=== PATIENT | female | born 1955 | race Caucasian/White ===

== ENCOUNTER → 2017-08-19 18:11 | Outpatient (CLI) | payer MEDICARE | END | disposition home or self-care (01) | LOC: D.MAMMO 09:00 | DX: Z85.3 Personal history of malignant neoplasm of breast (principal); Z12.31 Encounter for screening mammogram for malignant neoplasm of breast ==

== ENCOUNTER → 2018-09-23 08:09 | Outpatient (CLI) | payer MEDICARE | END | disposition home or self-care (01) | LOC: D.CT 08:00 | DX: R05 Cough (principal) ==

== ENCOUNTER 2019-01-17 19:00 | Outpatient (CLI) | payer OTHER | END 2019-01-17 23:59 | disposition home or self-care (01) | LOC: D.MAMMO 19:00 | PROVIDERS: ATTEND Emergency Medicine | DX: Z85.3 Personal history of malignant neoplasm of breast (principal) ==

== ENCOUNTER → 2019-03-30 08:38 | Outpatient (CLI) | payer OTHER | END | disposition home or self-care (01) | LOC: D.CT 08:38 | PROVIDERS: ATTEND Internal Medicine Pulmonary Disease | DX: R93.89 Abnormal findings on diagnostic imaging of other specified body structures (principal) ==

== ENCOUNTER → 2019-04-15 08:22 | Outpatient (CLI) | payer OTHER ==
[2019-04-18 13:11] LABS: ANGIOTENSIN CONVERTING ENZYME 37 U/L (14-82)
[2019-04-18 16:09] LABS: ANCA - ANTIMYELOPEROXIDASE <9.0 U/mL (0.0-9.0); ANCA - ANTIPROTEINASE 3 <3.5 U/mL (0.0-3.5); ANCA - ATYPICAL <1:20 titer (Neg:<1:20); ANCA - CYTOPLASMIC <1:20 titer (Neg:<1:20); ANCA - PERINUCLEAR <1:20 titer (Neg:<1:20)
[2019-04-19 03:08] LABS: ANA REFLEX - DIRECT Negative (Negative)
== END | disposition home or self-care (01) ==
LOC: D.LAB 08:22
PROVIDERS: ATTEND Internal Medicine Pulmonary Disease
DX: R93.89 Abnormal findings on diagnostic imaging of other specified body structures (principal)

== ENCOUNTER → 2019-07-05 08:13 | Outpatient (CLI) | payer OTHER ==
[2019-07-05 09:21] LABS: BASOPHILS 0.5 % (0-2); EOSINOPHILS 2.8 % (0-7); HEMATOCRIT 39.3 % (36.0-48.0); HEMOGLOBIN 13.1 g/dL (12-16); LYMPHOCYTES 27.6 % (15-50); MCH 31.2 pg (26.0-34.0); MCHC 33.3 g/dL (31.0-37.0); MCV 93.6 fL (80.0-100.0); MONOCYTES 13.7 % (2-11); NEUTROPHILS 55.4 % (40-80); PLATELET COUNT 163 10x3/uL (130-400); RDW 12.6 % (11.5-14.5); WBC 4.3 10x3/uL (4.8-10.8)
[2019-07-06 16:08] LABS: ANA REFLEX - DIRECT Negative (Negative)
[2019-07-07 12:10] LABS: ANGIOTENSIN CONVERTING ENZYME 40 U/L (14-82)
[2019-07-07 17:08] LABS: ANCA - ANTIMYELOPEROXIDASE <9.0 U/mL (0.0-9.0); ANCA - ANTIPROTEINASE 3 <3.5 U/mL (0.0-3.5); ANCA - ATYPICAL <1:20 titer (Neg:<1:20); ANCA - CYTOPLASMIC <1:20 titer (Neg:<1:20); ANCA - PERINUCLEAR <1:20 titer (Neg:<1:20)
== END | disposition home or self-care (01) ==
LOC: D.CT 08:13
PROVIDERS: ATTEND Internal Medicine Pulmonary Disease
DX: R91.1 Solitary pulmonary nodule (principal)

== ENCOUNTER → 2019-08-19 10:19 | Outpatient (CLI) | payer OTHER ==
[~2019-08-19 10:19] MED LIST: ASPIRIN325 MG PO; BAYER ASPIRIN325 MG PO; BENICAR40 MG PO; HYDROCODON-ACE1 EAC7 PO; KEFLEX500 MG PO; METOPROLOL TART50 MG PO; MOBIC7.5 MG PO; OMEPRAZOLE20 M1 PO; OXYCODONE HCL5 M1 PO; PREDNISONE20 MG PO; VISTARIL50 MG PO
[2019-10-08 12:28] VITALS: BMI 36.1
== END | disposition home or self-care (01) ==
LOC: D.RT 07-05 08:00
PROVIDERS: ATTEND Internal Medicine Pulmonary Disease
DX: R05 Cough (principal); R93.89 Abnormal findings on diagnostic imaging of other specified body structures

== ENCOUNTER → 2019-08-24 09:56 | Outpatient (CLI) | payer OTHER ==
[2019-10-08 12:28] VITALS: BMI 36.1
== END | disposition home or self-care (01) ==
LOC: D.HCCECHO 09:56 → D.HCCARDIO 10:30 → D.HCCECHO 10:30
PROVIDERS: ATTEND Internal Medicine Cardiovascular Disease
DX: I34.0 Nonrheumatic mitral (valve) insufficiency (principal)

== ENCOUNTER 2019-10-08 09:42 | Inpatient (IN) | payer OTHER ==
[~2019-10-08] VITALS: Ht 162.6 cm; Wt 95.5 kg
[2019-10-08] MEDS ORDERED: BENICAR40 MG PO (09:45)
[2019-10-08] MEDS ORDERED: METOPROLOL TART50 MG PO (09:45)
[2019-10-08] MEDS ORDERED: MOBIC7.5 MG PO (09:46)
[2019-10-08] MEDS ORDERED: OMEPRAZOLE20 M1 PO (09:46)
[2019-10-08] MEDS ORDERED: HYDROCODON-ACE1 EAC7 PO (09:47)
[2019-10-08] MEDS ORDERED: PREDNISONE20 MG PO (09:48)
[2019-10-08 10:39] LABS: BASOPHILS 0.1 % (0-2); EOSINOPHILS 0.1 % (0-7); HEMATOCRIT 41.7 % (36.0-48.0); HEMOGLOBIN 13.4 g/dL (12-16); IMMATURE GRANULOCYTES 0.2 % (0-5); LYMPHOCYTES 5.4 % (15-50); MCH 31.3 pg (26.0-34.0); MCHC 32.1 g/dL (31.0-37.0); MCV 97.4 fL (80.0-100.0); MEAN PLATELET VOLUME 11.3 fL (7.4-10.4); MONOCYTES 6.8 % (2-11); NEUTROPHILS 87.4 % (40-80); PLATELET COUNT 158 10x3/uL (130-400); RBC 4.28 10x6/uL (4.00-5.40); WBC 11.6 10x3/uL (4.8-10.8)
[2019-10-08 10:44] LABS: ANION GAP 12.7 mmol/L (8-16); APTT 26.2 SECONDS (22.8-39.4); CALCIUM 9.5 mg/dL (8.5-10.1); CARBON DIOXIDE 27.8 mmol/L (21.0-32.0); CREATININE - SERUM 1.1 mg/dL (0.6-1.3); INR 1.06 (0.85-1.17); POTASSIUM - SERUM 4.5 mmol/L (3.5-5.1); PROTIME 13.3 SECONDS (11.6-15.0)
[2019-10-08 10:50] LABS: ALBUMIN 3.6 g/dL (3.4-5.0); BILIRUBIN - TOTAL 0.48 mg/dL (0.2-1.3); PROTEIN - SERUM 7.9 g/dL (6.4-8.2)
[2019-10-08 11:12] VITALS: BP 144/70
--- NOTE | 2019-10-08 11:23 | MORECARE ---
CASE MANAGEMENT DISCHARGE SUMMARY PATIENT: EMMANUEL LI EARLENE UNIT: [id number] ADM DATE: 10/08/19 AGE: 64 : 53 SEX: F ROOM/BED: D.2208 AUTHOR: RENALDO BARRAGAN PHYSICIAN: REFERRING PHYSICIAN: ANEUDY HAWTHORNE MD DATE OF SERVICE: 10/08/19 Discharge Plan Patient Name: EMMANUEL LI [facility] [facility] 1955 Planned Disposition: Home Anticipated Discharge Date: 10/10/19 Discharge Date: Expected LOS: 2 Initial Reviewer: [email or web address] Initial Review Date: 10/08/2019 Generated: 10/08/19 12:22 pm DCPIA - Discharge Planning Initial Assessment Updated by [id number]: Gayle Hanna on 10/08/19 11:20 am * Is the patient Alert and Oriented? Yes * How many steps to enter\exit or inside your home? One * PCP Dr. Hamilton * [facility] * Preadmission Environment Home with Family * ADLs Independent * Equipment CPAP * List name and contact numbers for known caregivers / representatives who currently or will assist patient after discharge: Alexander Li - spouse - [phone] * Verbal permission to speak to the caregivers and representatives has been obtained from the patient. Yes * Community resources currently utilized None * Additional services required to return to the preadmission environment? No * Can the patient safely return to the preadmission environment? Yes * Has this patient been hospitalized within the prior 30 days at any hospital? No Patient Name: EMMANUEL LI Page [id number] at 1123 All edits/amendments must be made on the electronic document DICTATION DATE: 10/08/19 112 AUTO DAMAGE ESTIMATOR: EVELIA 10/08/191121 RPT#: [id number] DC DATE: STATUS: ADM IN [facility] [address] [place] [address] END OF REPORT
--- NOTE | 2019-10-08 11:35 | MORECARE ---
CASE MANAGEMENT DISCHARGE SUMMARY PATIENT: EMMANUEL LI EARLENE UNIT: [id number] ADM DATE: 10/08/19 AGE: 64 : 53 SEX: F ROOM/BED: D.2205 AUTHOR: YUNG,DOC PHYSICIAN: REFERRING PHYSICIAN: ANEUDY HAWTHORNE MD DATE OF SERVICE: 10/08/19 Discharge Plan Patient Name: EMMANUEL LI Facility[facility]:[place] : 1955 Planned Disposition: Home Anticipated Discharge Date: 10/10/19 Discharge Date: Expected LOS: 2 Initial Reviewer: [email or web address] Initial Review Date: 10/08/2019 Generated: 10/08/19 12:35 pm DCP- Discharge Planning Updated by [id number]: Gayle Hanna on 10/08/19 10:[address] DC PLAN: Return home with if able post op. ANTICIPATED DC NEEDS: May need therapy at dc. CM met with patient to complete initial dc planning assessment. CM educated patient on the CM role and verbal consent given by patient to complete assessment. CM verified patient's address, phone number, and emergency contact phone numbers. Patient lives at home with her . She is independent in her care at home. She reports she was hold a gate to keep a cow in a contained area when the cow ran through the gate and she fell on her right hip. At discharge patient plans to return home with her and feels this is a safe discharge. CM discussed availability of home health, rehab services, and medical equipment. Patient denied known discharge needs at this time. She is hopeful to not need therapy at time of discharge but is aware she may need OP or HH if she does not do well post op. Transportation provider at discharge will be her . CM will continue to follow and will assist as needed with dc plans/needs. Gayle Hanna RN, CCM DCPIA - Discharge Planning Initial Assessment Updated by [id number]: Gayle Hanna on 10/08/19 11:20 am * Is the patient Alert and Oriented? Yes * How many steps to enter\exit or inside your home? One * PCP Dr. Hamilton * [facility] * Preadmission Environment Home with Family * ADLs Independent * Equipment CPAP * List name and contact numbers for known caregivers / representatives who currently or will assist patient after discharge: Alexander Li - spouse - [phone] * Verbal permission to speak to the caregivers and representatives has been obtained from the patient. Yes * Community resources currently utilized None * Additional services required to return to the preadmission environment? No * Can the patient safely return to the preadmission environment? Yes * Has this patient been hospitalized within the prior 30 days at any hospital? No Last DP export: 10/08/19 10:23 Patient Name: EMMANUEL LI Page [id number] at 1135 All edits/amendments must be made on the electronic document DICTATION DATE: 10/08/19 113 CAMPUS RECRUITING INTERNSHIP: EVELIA 10/08/19 113 RPT#: [id number] DC DATE: STATUS: ADM IN [facility] [address] [place] [address] END OF REPORT
--- NOTE | 2019-10-08 11:46 | NUR ---
PT ARRIVED VIA STRECHER ANS WAS TRANSFERRED ON SLIDING BOARD. PT WAS IN PAIN DURING TRANSFER BUT DENIES PAIN AT THIS TIME. 20G NOTED TO LEFT AC SL. RR EVEN AND UNLABORED. PT POSITIONED TO COMFORT. DENIES NEEDS AT THIS TIME. FAMILY AT BEDSIDE. BED IN LOWEST POSITION. PT ORIENTED TO ROOM. CALL LIGHT WITHIN REACH. WILL CONTINUE TO MONITOR.
[2019-10-08] MEDS ORDERED: BAYER ASPIRIN325 MG PO (11:54)
--- NOTE | 2019-10-08 12:08 | NUR ---
I have reviewed this patient and I concur with the Shift Assessment completed by the Licensed Practical Nurse today this shift.
[2019-10-08 12:28] VITALS: BP 123/51; Ht 162.6 cm; Wt 95.5 kg
[2019-10-08 14:36] VITALS: BP 123/51
[2019-10-08 16:26] VITALS: BP 148/70
--- NOTE | 2019-10-08 18:15 | NUR ---
PRIOR TO CHLORAPREP PATIENT WAS SCRUBBED WITH HIBICLENS/ALCOHOL FOR 5 MINUTES FROM HIP TO CALF CIRCUMFERENTIALLY. RN PREPPED FROM HIP TO CALF CIRCUMFERENTIALLY WITH CHLORAPREP X3 IN STERILE GOWN AND GLOVES. TRAFFIC IN AND OUT OF ROOM KEPT TO MINIMUM. LAMINER NEHEMIAS NOT IN USE. PLASMA BLADE SET TO 6/8. REM PAD LOT #[id number] EXP. 04-21-2021 WOUND BED PACKED WITH TOBRAMYCIN AND VANCOMYCIN POWDER.
[2019-10-08 20:09] VITALS: BP 107/60
--- NOTE | 2019-10-08 20:23 | NUR ---
RECEIVED FROM RR AWAKE,ALERT.NO DISTRESS NOTED. O2 @ 2L PER NC ON. RESP UNLABORED. NO COMPLAITNS OF PAIN AT PRESENT. IV TO LAC INTACT WITHOUT REDNESS OR EDEMA NOTED. PROVENA INTACT TO RIGHT HIP INCISION.CL IN REACH. FAMILY AT BEDSIDE.
[2019-10-09] VITALS: BP 145/63
--- NOTE | 2019-10-09 03:00 | NUR ---
I have reviewed this patient and I concur with the Shift Assessment completed by the Licensed Practical Nurse today this shift.
[2019-10-09 03:06] LABS: APPEARANCE CLEAR (CLEAR); BILIRUBIN NEGATIVE (NEGATIVE); COLOR YELLOW (YELLOW); GLUCOSE NEGATIVE (NEGATIVE); KETONE NEGATIVE (NEGATIVE); NITRITE NEGATIVE (NEGATIVE); PROTEIN NEGATIVE (NEGATIVE); SPECIFIC GRAVITY 1.015 (1.005-1.020); UROBILINOGEN NORMAL (NORMAL)
[2019-10-09 04:00] VITALS: BP 90/48
[2019-10-09 07:07] LABS: BASOPHILS 0 % (0-2); EOSINOPHILS 0 % (0-7); HEMATOCRIT 34.5 % (36.0-48.0); IMMATURE GRANULOCYTES 0.3 % (0-5); LYMPHOCYTES 10.1 % (15-50); MCH 31.4 pg (26.0-34.0); MCHC 31.9 g/dL (31.0-37.0); MCV 98.6 fL (80.0-100.0); MONOCYTES 12.9 % (2-11); NEUTROPHILS 76.7 % (40-80); PLATELET COUNT 155 10x3/uL (130-400); RDW 13.2 % (11.5-14.5); WBC 11.7 10x3/uL (4.8-10.8)
[2019-10-09 07:39] LABS: ANION GAP 14.5 mmol/L (8-16); CALCIUM 8.8 mg/dL (8.5-10.1); CREATININE - SERUM 1.1 mg/dL (0.6-1.3); POTASSIUM - SERUM 4.5 mmol/L (3.5-5.1)
[2019-10-09 08:45] VITALS: BP 109/66
--- NOTE | 2019-10-09 08:49 | NUR ---
PATIENT RECIEVED FROM PREVIOUS NURSE RESTING WITH HOB ELEVATED. RESPIRTATIONS REGULAR AND NON-LABORED. PREVENA VAC INTACT TO RIGHT HIP. OXYCODONE 5MG AND VISTERIL GIVEN FOR PAIN. EDUCATED ON USE OF IS WITH PATIENT VOICING UNDERSTANDING. CL IN REACH
[2019-10-09 12:00] VITALS: BP 109/40
--- NOTE | 2019-10-09 13:50 | MORECARE ---
CASE MANAGEMENT DISCHARGE SUMMARY PATIENT: EMMANUEL LI EARLENE UNIT: [id number] ADM DATE: 10/08/19 AGE: 64 : 53 SEX: F ROOM/BED: D.9936 AUTHOR: YUNG,DOC PHYSICIAN: REFERRING PHYSICIAN: ANEUDY HAWTHORNE MD DATE OF SERVICE: 10/09/19 Discharge Plan Patient Name: EMMANUEL LI Facility: [facility]:[place] : 1955 Planned Disposition: Home Anticipated Discharge Date: 10/10/19 Discharge Date: Expected LOS: 2 Initial Reviewer: [email or web address] Initial Review Date: 10/08/2019 Generated: 10/09/19 2:50 pm DCP- Discharge Planning Updated by [email or web address]: Gayle Hanna on 10/08/19 10:[address] DC PLAN: Return home with if able post op. ANTICIPATED DC NEEDS: May need therapy at dc. CM met with patient to complete initial dc planning assessment. CM educated patient on the CM role and verbal consent given by patient to complete assessment. CM verified patient's address, phone number, and emergency contact phone numbers. Patient lives at home with her . She is independent in her care at home. She reports she was hold a gate to keep a cow in a contained area when the cow ran through the gate and she fell on her right hip. At discharge patient plans to return home with her and feels this is a safe discharge. CM discussed availability of home health, rehab services, and medical equipment. Patient denied known discharge needs at this time. She is hopeful to not need therapy at time of discharge but is aware she may need OP or HH if she does not do well post op. Transportation provider at discharge will be her . CM will continue to follow and will assist as needed with dc plans/needs. Gayle Hanna RN, CCM DCPIA - Discharge Planning Initial Assessment Updated by [email or web address]: Gayle Hanna on 10/08/19 11:20 am * Is the patient Alert and Oriented? Yes * How many steps to enter\exit or inside your home? One * PCP Dr. Hamilton * [facility] * Preadmission Environment Home with Family * ADLs Independent * Equipment CPAP * List name and contact numbers for known caregivers / representatives who currently or will assist patient after discharge: Alexander Li - spouse - [phone] * Verbal permission to speak to the caregivers and representatives has been obtained from the patient. Yes * Community resources currently utilized None * Additional services required to return to the preadmission environment? No * Can the patient safely return to the preadmission environment? Yes * Has this patient been hospitalized within the prior 30 days at any hospital? No External Providers External Provider: [facility] Next Contact Date: Service Request Date: Service Type: Resolution: Reviewer: Comments: Coverage Notice Reviewer: [id number] - Mariya Temitope Notice Issued Date-Time: 10/09/2019 13:46 Notice Type: Patient Choice Letter Notice Delivered To: Patient Relationship to Patient: Vendor Management Associate Name: Delivery Method: HAND - Hand Delivered Clara Days: Prior Verbal Notification: Recipient Understood Notice: Yes Recipient Signature: Yes Med Rec Note Co-signed by Attending: Coverage Notice Comment: [facility]. Last DP export: 10/08/19 10:35 Patient Name: EMMANUEL LI Page [id number] at 1350 All edits/amendments must be made on the electronic document DICTATION DATE: 10/09/19 1350 DIANETIC COUNSELOR: EVELIA 10/09/19 1350 RPT#: [id number] DC DATE: STATUS: ADM IN [facility] [address] [place] [address] END OF REPORT
--- NOTE | 2019-10-09 14:10 | MORECARE ---
CASE MANAGEMENT DISCHARGE SUMMARY PATIENT: EMMANUEL LI EARLENE UNIT: [id number] ADM DATE: 10/08/19 AGE: 64 : 51 SEX: F ROOM/BED: D.6505 AUTHOR: YUNGDOC PHYSICIAN: REFERRING PHYSICIAN: ANEUDY HAWTHORNE MD DATE OF SERVICE: 10/09/19 Discharge Plan Patient Name: EMMANUEL LI Facility: [facility]:[place] : 1955 Planned Disposition: Home Anticipated Discharge Date: 10/10/19 Discharge Date: Expected LOS: 2 Initial Reviewer: [email or web address] Initial Review Date: 10/08/2019 Generated: 10/09/19 3:10 pm Comments DCP- Discharge Planning Updated by [email or web address]: Mariya Linn on 10/09/19 1:[address] Patient Name: EMMANUEL LI Admission Status: ER Accout number: [id number] Admission Date: 10-08-2019 : 1955 Admission Diagnosis: Attending: ANEUDY HAWTHORNE Current LOS: 1 Anticipated DC Date: 10-10-2019 Planned Disposition: Home Primary Insurance: [employer] Discharge Planning Comments: CM MET WITH PATIENT ABOUT DC PLANNING/NEEDS. STATES NEEDS A WALKER, BSC AND RAISED TOILET. I FAXED REFERRAL TO [facility] PATIENT AND LET THEM KNOW ANTICIPATE DC IN THE MORNING. PATIENT WANTS OUT PATIENT PT WITH THE PT ON RACHEAL PATEL, SHE WILL LET US KNOW SOON SHE FINDS OUT THE NAME. SHE IS TO DC WITH THE PROVENA WOUND VAC. ANTICIPATE DC IN THE MORNING. CM TO FOLLOW. DENIES HH OR REHAB. DR PRESCOTT STATES WILL REMOVE VAC IN ONE WEEK AT HER FOLLOW UP APPOINTMENT. Cabinet Assembler: Mariya Linn DCP- Discharge Planning Updated by [email or web address]: Gayle Hanna on 10/08/19 10:[address] DC PLAN: Return home with if able post op. ANTICIPATED DC NEEDS: May need therapy at dc. CM met with patient to complete initial dc planning assessment. CM educated patient on the CM role and verbal consent given by patient to complete assessment. CM verified patient's address, phone number, and emergency contact phone numbers. Patient lives at home with her . She is independent in her care at home. She reports she was hold a gate to keep a cow in a contained area when the cow ran through the gate and she fell on her right hip. At discharge patient plans to return home with her and feels this is a safe discharge. CM discussed availability of home health, rehab services, and medical equipment. Patient denied known discharge needs at this time. She is hopeful to not need therapy at time of discharge but is aware she may need OP or HH if she does not do well post op. Transportation provider at discharge will be her . CM will continue to follow and will assist as needed with dc plans/needs. Gayle Hanna RN, [facility] DCPIA - Discharge Planning Initial Assessment Updated by [email or web address]: Gayle Hanna on 10/08/19 11:20 am * Is the patient Alert and Oriented? Yes * How many steps to enter\exit or inside your home? One * PCP Dr. Hamilton * Pharmacy [facility] * Preadmission Environment Home with Family * ADLs Independent * Equipment CPAP * List name and contact numbers for known caregivers / representatives who currently or will assist patient after discharge: Alexander Li - spouse - [phone] * Verbal permission to speak to the caregivers and representatives has been obtained from the patient. Yes * Community resources currently utilized None * Additional services required to return to the preadmission environment? No * Can the patient safely return to the preadmission environment? Yes * Has this patient been hospitalized within the prior 30 days at any hospital? No Coverage Notice Reviewer: [email or web address] Jaimie Linn Notice Issued Date-Time: 10/09/2019 13:46 Notice Type: Patient Choice Letter Notice Delivered To: Patient Relationship to Patient: Bellhop Captain Name: Delivery Method: HAND - Hand Delivered Clara Days: Prior Verbal Notification: Recipient Understood Notice: Yes Recipient Signature: Yes Med Rec Note Co-signed by Attending: Coverage Notice Comment: [facility]. Last DP export: 10/09/19 12:50 Patient Name: EMMANUEL LI Page [phone] at 1410 All edits/amendments must be made on the electronic document DICTATION DATE: 10/09/19 1410 BACK SHOE CUTTER: EVELIA 10/09/19 1410 RPT#: [id number] DC DATE: STATUS: ADM IN [facility] [address] [place] [address] END OF REPORT
[2019-10-09 17:01] VITALS: BP 104/67
[2019-10-09 20:00] VITALS: BP 112/60
[2019-10-10] VITALS: BP 126/49
[2019-10-10 04:00] VITALS: BP 119/58
[2019-10-10 05:21] LABS: BASOPHILS 0 % (0-2); EOSINOPHILS 0 % (0-7); HEMATOCRIT 31.3 % (36.0-48.0); HEMOGLOBIN 10.1 g/dL (12-16); IMMATURE GRANULOCYTES 0.3 % (0-5); LYMPHOCYTES 21.4 % (15-50); MCH 31.1 pg (26.0-34.0); MCHC 32.3 g/dL (31.0-37.0); MEAN PLATELET VOLUME 11.4 fL (7.4-10.4); MONOCYTES 17.6 % (2-11); NEUTROPHILS 60.7 % (40-80); PLATELET COUNT 129 10x3/uL (130-400); RBC 3.25 10x6/uL (4.00-5.40); RDW 13.1 % (11.5-14.5)
[2019-10-10 05:22] LABS: MCV 96.3 fL (80.0-100.0); WBC 7.5 10x3/uL (4.8-10.8)
[2019-10-10 05:51] LABS: CALCIUM 8.6 mg/dL (8.5-10.1)
[2019-10-10] MEDS ORDERED: OXYCODONE HCL5 M1 PO (07:10)
[2019-10-10] MEDS ORDERED: ASPIRIN325 MG PO (07:10)
[2019-10-10] MEDS ORDERED: VISTARIL50 MG PO (07:11)
[2019-10-10] MEDS ORDERED: KEFLEX500 MG PO (07:11)
[2019-10-10 07:39] VITALS: BP 114/54
--- NOTE | 2019-10-10 07:52 | NUR ---
ALERT AND ORIENTED. LUNGS CLEAR BILATERALLY. HEART SOUNDS S1 AND S2 HEARD IN ALL LIANG. BOWEL SOUNDS ACTIVE X 4. WOUND VAC IN PLACE TO RIGHT HIP. SKIN OTHERWISE INTACT WITHOUT REDNESS. ASSISTED TO BATHROOM AND BACK WITH USE OF WALKER. DENIES PAIN. DENIES NEEDS. BED LOW. FALL PRECAUTIONS IN PLACE. CALL VILLANUEVA AND PERSONAL ITEMS IN REACH. DAUGHTER AND AT BEDSIDE. DISCHARGING TODAY PER DR PRESCOTT. WILL CONTINUE TO MONITOR.
--- NOTE | 2019-10-10 08:55 | OP ---
PATIENT NAME: EMMANUEL LI MEDICAL RECORD: [id number] :[birth year] LOCATION:D.MS [id number] ADMISSION DATE:10/08/19 SURGEON: FLAVIO PRESCOTT DO DATE OF OPERATION: 10/08/2019 PROCEDURE PERFORMED: Right total hip arthroplasty. PREOPERATIVE DIAGNOSIS: Displaced right femoral neck fracture. POSTOPERATIVE DIAGNOSIS: Displaced right femoral neck fracture. INDICATIONS: Ms. Li is a 64-year-old female, who fell after being knocked over by a cow approximately 3 days ago and then this morning, she felt a pop and when she was walking could not bear weight and noticed her leg was shortened. She went to the ER and x-rays were taken and demonstrated a right displaced femoral neck fracture at the subcapital region. I came in to see her and I have informed her that she would need to have a hip replacement, that would be the best treatment for her, that she would be able to weightbear immediately on it. I informed of the risks including infection, bleeding, damage to nerves and vessels, need for further surgery, continued pain, loosening, failure of hardware, blood clots, and even and she signed the consent. SURGEON: Flavio Prescott DO DESCRIPTION OF PROCEDURE: The patient was taken to the operative suite and laid in the supine position, given general anesthetic and intubated. She was given 2 grams of Ancef and 80 mg of gentamicin preoperatively. The patient was then positioned on the [place] table and the right lower extremity and hip were prepped and draped in sterile fashion. I had reprepped the site once we had draped with two U-drapes sterilely and then the Ioban drape was placed over that. Then, the time-out was performed. Everyone was in agreement with correct side, site, patient, and procedure. Incision began over tensor fasciae latae muscle and a careful dissection was made down to the fascia and the fascia was incised. The fascia was taken to anterior and the muscle belly posterior, opened up the rectus interval and the rectus sheath was then opened and then the rectus was taken medially and the tensor fascia diane laterally. The ascending branch of the lateral femoral circumflex was then encountered and tied off and coagulated with Aquamantys. The capsule was then opened. A saha of blood came out from the fracture and then Hohmanns were placed inside the capsule. The capsule was then tagged and once the femoral neck was exposed, it was cut due to the subcapital fracture. This was removed and then the head was removed using two channelers and a gvust-ey-ybrjb. Once it was removed, the labrum was removed as well as the pulvinar and reaming began from a 42 up to a 48 and then put a 48 cup and impacted and fit well. This was under fluoroscopy and then the liner was placed in. We then exposed the femur and then the femoral canal was entered with the canal finder and then the [employer] cutter was used to enter the canal as well. We then broached to a 10. The 10 fit a little snug and the hip was reduced, seemed to be a little short with a -3 so I would go to a standard. The 10 was removed, 10 broach and then we broached up to a 12. This fit very well. The 12 stem was put down with a standard neck, dual mobility. Hip was then reduced and confirmed on x-ray to be in good position and in very close to exact equal length as the left hip with the lesser trochanter. This was on AP pelvis. We also x-rayed the femur. There is no fracture seen and the stem fit very well. I then irrigated with 500 mL of normal saline, mixed with 17 fluid ounces of 10% Betadine and iodine and left in the wound for 3 minutes. This was then OPERATIVE REPORT [id number] EMMANUEL LI irrigated with over a liter of normal saline. Then put in Indu and vancomycin-tobramycin powder. The tensor fascia diane fascia was then closed with #1 Vicryl in [id number] in a running locking stitch. Skin was then closed with 2-0 Vicryl in inverted interrupted fashion and 4-0 Monocryl around the skin and a Prevena VAC was placed on the skin. She was then awakened and taken to recovery in stable condition. Blood loss approximately 300 mL. Complications were none. TRANSINT:[id number] Voice Confirmation ID: [id number] DOCUMENT ID: [id number] FLAVIO PRESCOTT DO at 0855 CC: [id number] DICTATION DATE: 10/08/191837 PLANT NURSERY WORKER: 10/08/19 190 ADM IN [facility] [address] [place] [address]
--- NOTE | 2019-10-10 08:57 | MORECARE ---
CASE MANAGEMENT DISCHARGE SUMMARY PATIENT: EMMANUEL LI EARLENE UNIT: [id number] ADM DATE: 10/08/19 AGE: 64 : 51 SEX: F ROOM/BED: D.3697 AUTHOR: YUNG,DOC PHYSICIAN: REFERRING PHYSICIAN: ANEUDY HAWTHORNE MD DATE OF SERVICE: 10/10/19 Discharge Plan Patient Name: EMMANUEL LI Facility: [facility]:[place] : 1955 Planned Disposition: Home Anticipated Discharge Date: 10/10/19 Discharge Date: Expected LOS: 2 Initial Reviewer: [email or web address] Initial Review Date: 10/08/2019 Generated: 10/10/19 9:56 am Comments DCP- Discharge Planning Updated by [email or web address]: Rhea Haines on 10/10/19 7:[address] SPOKE WITH ARUN AT [facility] PATIENT, SHE DID NOT RECEIVE TH ORDER OR CLINICAL. REXED IT OVER TO HER. WILL AWAIT FOR CALL BACK DCP- Discharge Planning Updated by [email or web address]: Mariya Linn on 10/09/19 1:[address] Patient Name: EMMANUEL LI Admission Status: ER Accout number: [id number] Admission Date: 10-08-2019 : 1955 Admission Diagnosis: Attending: ANEUDY HAWTHORNE Current LOS: 1 Anticipated DC Date: 10-10-2019 Planned Disposition: Home [facility] Discharge Planning Comments: CM MET WITH PATIENT ABOUT DC PLANNING/NEEDS. STATES NEEDS A WALKER, BSC AND RAISED TOILET. I FAXED REFERRAL TO [facility] PATIENT AND LET THEM KNOW ANTICIPATE DC IN THE MORNING. PATIENT WANTS OUT PATIENT PT WITH THE PT ON RACHEAL AMANDA, SHE WILL LET US KNOW SOON SHE FINDS OUT THE NAME. SHE IS TO DC WITH THE PROVENA WOUND VAC. ANTICIPATE DC IN THE MORNING. CM TO FOLLOW. DENIES HH OR REHAB. DR PRESCOTT STATES WILL REMOVE VAC IN ONE WEEK AT HER FOLLOW UP APPOINTMENT. Project Engineer: Mariya Linn DCP- Discharge Planning Updated by [email or web address]: Gayle Hanna on 10/08/19 10:[address] DC PLAN: Return home with if able post op. ANTICIPATED DC NEEDS: May need therapy at dc. CM met with patient to complete initial dc planning assessment. CM educated patient on the CM role and verbal consent given by patient to complete assessment. CM verified patient's address, phone number, and emergency contact phone numbers. Patient lives at home with her . She is independent in her care at home. She reports she was hold a gate to keep a cow in a contained area when the cow ran through the gate and she fell on her right hip. At discharge patient plans to return home with her and feels this is a safe discharge. CM discussed availability of home health, rehab services, and medical equipment. Patient denied known discharge needs at this time. She is hopeful to not need therapy at time of discharge but is aware she may need OP or HH if she does not do well post op. Transportation provider at discharge will be her . CM will continue to follow and will assist as needed with dc plans/needs. Gayle Hanna RN, [facility] DCPIA - Discharge Planning Initial Assessment Updated by [email or web address]: Gayle Hanna on 10/08/19 11:20 am * Is the patient Alert and Oriented? Yes * How many steps to enter\exit or inside your home? One * PCP Dr. Hamilton * [facility]acy [facility] * Preadmission Environment Home with Family * ADLs Independent * Equipment CPAP * List name and contact numbers for known caregivers / representatives who currently or will assist patient after discharge: Alexander Li - spouse - [phone] * Verbal permission to speak to the caregivers and representatives has been obtained from the patient. Yes * Community resources currently utilized None * Additional services required to return to the preadmission environment? No * Can the patient safely return to the preadmission environment? Yes * Has this patient been hospitalized within the prior 30 days at any hospital? No Coverage Notice Reviewer: [id number] Jaimie Linn Notice Issued Date-Time: 10/09/2019 13:46 Notice Type: Patient Choice Letter Notice Delivered To: Patient Relationship to Patient: Chucking Lathe Operator Name: Delivery Method: HAND - Hand Delivered Clara Days: Prior Verbal Notification: Recipient Understood Notice: Yes Recipient Signature: Yes Med Rec Note Co-signed by Attending: Coverage Notice Comment: [facility]. Last DP export: 10/09/19 1:10 Patient Name: EMMANUEL LI Page [phone] at 0857 All edits/amendments must be made on the electronic document DICTATION DATE: 10/10/19855 CORN DETASSELER MACHINE OPERATOR: EVELIA 10/10/19855 RPT#: [id number] DC DATE: STATUS: ADM IN [facility] [address] [place] [address] END OF REPORT
--- NOTE | 2019-10-10 10:35 | NUR ---
UP WALKING WITH THERAPY.
--- NOTE | 2019-10-10 11:13 | MORECARE ---
CASE MANAGEMENT DISCHARGE SUMMARY PATIENT: EMMANUEL LI EARLENE UNIT: [id number] ADM DATE: 10/08/19 AGE: 64 : 53 SEX: F ROOM/BED: D.6466 AUTHOR: YUNG,DOC PHYSICIAN: REFERRING PHYSICIAN: ANEUDY HAWTHORNE MD DATE OF SERVICE: 10/10/19 Discharge Plan Patient Name: EMMANUEL LI Facility: [facility]:[place] : 1955 Planned Disposition: Home Anticipated Discharge Date: 10/10/19 Discharge Date: Expected LOS: 2 Initial Reviewer: [email or web address] Initial Review Date: 10/08/2019 Generated: 10/10/19 12:12 pm Comments DCP- Discharge Planning Updated by [id number]: Rhea Haines on 10/10/19 7:[address] SPOKE WITH ARUN AT [facility] PATIENT, SHE DID NOT RECEIVE TH ORDER OR CLINICAL. REXED IT OVER TO HER. WILL AWAIT FOR CALL BACK DCP- Discharge Planning Updated by [id number]: Mariya Linn on 10/09/19 1:[address] Patient Name: EMMANUEL LI Admission Status: ER Accout number: [id number] Admission Date: 10-08-2019 : 1955 Admission Diagnosis: Attending: ANEUDY HAWTHORNE Current LOS: 1 Anticipated DC Date: 10-10-2019 Planned Disposition: Home Primary Insurance: [facility] Discharge Planning Comments: CM MET WITH PATIENT ABOUT DC PLANNING/NEEDS. STATES NEEDS A WALKER, BSC AND RAISED TOILET. I FAXED REFERRAL TO [facility] PATIENT AND LET THEM KNOW ANTICIPATE DC IN THE MORNING. PATIENT WANTS OUT PATIENT PT WITH THE PT ON RACHEAL AMANDA, SHE WILL LET US KNOW SOON SHE FINDS OUT THE NAME. SHE IS TO DC WITH THE PROVENA WOUND VAC. ANTICIPATE DC IN THE MORNING. CM TO FOLLOW. DENIES HH OR REHAB. DR PRESCOTT STATES WILL REMOVE VAC IN ONE WEEK AT HER FOLLOW UP APPOINTMENT. Hat Renovator: Mariya Linn DCP- Discharge Planning Updated by [id number]: Gayle Hanna on 10/08/19 10:[address] DC PLAN: Return home with if able post op. ANTICIPATED DC NEEDS: May need therapy at dc. CM met with patient to complete initial dc planning assessment. CM educated patient on the CM role and verbal consent given by patient to complete assessment. CM verified patient's address, phone number, and emergency contact phone numbers. Patient lives at home with her . She is independent in her care at home. She reports she was hold a gate to keep a cow in a contained area when the cow ran through the gate and she fell on her right hip. At discharge patient plans to return home with her and feels this is a safe discharge. CM discussed availability of home health, rehab services, and medical equipment. Patient denied known discharge needs at this time. She is hopeful to not need therapy at time of discharge but is aware she may need OP or HH if she does not do well post op. Transportation provider at discharge will be her . CM will continue to follow and will assist as needed with dc plans/needs. Gayle Hanna RN, [facility] DCPIA - Discharge Planning Initial Assessment Updated by [id number]: Gayle Hanna on 10/08/19 11:20 am * Is the patient Alert and Oriented? Yes * How many steps to enter\exit or inside your home? One * PCP Dr. Hamilton * [facility]acy [facility] * Preadmission Environment Home with Family * ADLs Independent * Equipment CPAP * List name and contact numbers for known caregivers / representatives who currently or will assist patient after discharge: Alexander Li - spouse - [phone] * Verbal permission to speak to the caregivers and representatives has been obtained from the patient. Yes * Community resources currently utilized None * Additional services required to return to the preadmission environment? No * Can the patient safely return to the preadmission environment? Yes * Has this patient been hospitalized within the prior 30 days at any hospital? No External Providers External Provider: [facility] Next Contact Date: Service Request Date: Service Type: Resolution: Reviewer: Comments: Coverage Notice Reviewer: [id number] - Mariya Linn Notice Issued Date-Time: 10/09/2019 13:46 Notice Type: Patient Choice Letter Notice Delivered To: Patient Relationship to Patient: Epic Trainer Name: Delivery Method: HAND - Hand Delivered Clara Days: Prior Verbal Notification: Recipient Understood Notice: Yes Recipient Signature: Yes Med Rec Note Co-signed by Attending: Coverage Notice Comment: [facility]. Last DP export: 10/10/19 7:57 Patient Name: EMMANUEL LI Page [id number] at 1113 All edits/amendments must be made on the electronic document DICTATION DATE: 10/10/191111 CIRCLE EDGER: EVELIA 10/10/191111 RPT#: [id number] DC DATE: STATUS: ADM IN [facility] [address] [place] [address] END OF REPORT
--- NOTE | 2019-10-10 11:20 | MORECARE ---
CASE MANAGEMENT DISCHARGE SUMMARY PATIENT: EMMANUEL LI EARLENE UNIT: [id number] ADM DATE: 10/08/19 AGE: 64 : 53 SEX: F ROOM/BED: D.2201 AUTHOR: RENALDO BARRAGAN PHYSICIAN: REFERRING PHYSICIAN: ANEUDY HAWTHORNE MD DATE OF SERVICE: 10/10/19 Discharge Plan Patient Name: EMMANUEL LI Facility: [facility]:[place] : 1955 Planned Disposition: Home Anticipated Discharge Date: 10/10/19 Discharge Date: Expected LOS: 2 Initial Reviewer: [email or web address] Initial Review Date: 10/08/2019 Generated: 10/10/19 12:19 pm Comments DCP- Discharge Planning Updated by [id number]: Rhea Haines on 10/10/19 10:[address] Spoke with patient about OP PT she would like to use [facility] on [address]. I called [facility] and spoke with Lj, he was unsure if they took her insurance. I have sent a facesheet & they are going to run her insurance to see if they will take it. Lj to call me back. Zaheer at [facility] patient stated that they are on their way to deliver DME. Cm to follow and assist with DC planning. DCP- Discharge Planning Updated by [id number]: Rhea Haines on 10/10/19 7:[address] SPOKE WITH ZAHEER AT [facility] PATIENT, SHE DID NOT RECEIVE TH ORDER OR CLINICAL. REXED IT OVER TO HER. WILL AWAIT FOR CALL BACK DCP- Discharge Planning Updated by [id number]: Mariya Linn on 10/09/19 1:[address] Patient Name: EMMANUEL LI Admission Status: ER Accout number: [id number] Admission Date: 10-08-2019 : 1955 Admission Diagnosis: Attending: ANEUDY HAWTHORNE Current LOS: 1 Anticipated DC Date: 10-10-2019 Planned Disposition: Home Primary Insurance: [employer] Discharge Planning Comments: CM MET WITH PATIENT ABOUT DC PLANNING/NEEDS. STATES NEEDS A WALKER, BSC AND RAISED TOILET. I FAXED REFERRAL TO [facility] PATIENT AND LET THEM KNOW ANTICIPATE DC IN THE MORNING. PATIENT WANTS OUT PATIENT PT WITH THE PT ON [address]ACHE[facility] PATEL, SHE WILL LET US KNOW SOON SHE FINDS OUT THE NAME. SHE IS TO DC WITH THE PROVENA WOUND VAC. ANTICIPATE DC IN THE MORNING. CM TO FOLLOW. DENIES HH OR REHAB. DR PRESCOTT STATES WILL REMOVE VAC IN ONE WEEK AT HER FOLLOW UP APPOINTMENT. Dressage Instructor: Mariya Linn DCP- Discharge Planning Updated by [id number]: Gayle Hanna on 10/08/19 10:[address] DC PLAN: Return home with if able post op. ANTICIPATED DC NEEDS: May need therapy at dc. CM met with patient to complete initial dc planning assessment. CM educated patient on the CM role and verbal consent given by patient to complete assessment. CM verified patient's address, phone number, and emergency contact phone numbers. Patient lives at home with her . She is independent in her care at home. She reports she was hold a gate to keep a cow in a contained area when the cow ran through the gate and she fell on her right hip. At discharge patient plans to return home with her and feels this is a safe discharge. CM discussed availability of home health, rehab services, and medical equipment. Patient denied known discharge needs at this time. She is hopeful to not need therapy at time of discharge but is aware she may need OP or HH if she does not do well post op. Transportation provider at discharge will be her . CM will continue to follow and will assist as needed with dc plans/needs. Gayle Hanna RN, [facility] DCPIA - Discharge Planning Initial Assessment Updated by [id number]: Gayle Hanna on 10/08/19 11:20 am * Is the patient Alert and Oriented? Yes * How many steps to enter\exit or inside your home? One * PCP Dr. Hamilton * [facility]acy [facility] * Preadmission Environment Home with Family * ADLs Independent * Equipment CPAP * List name and contact numbers for known caregivers / representatives who currently or will assist patient after discharge: Alexander Li - spouse - [phone] * Verbal permission to speak to the caregivers and representatives has been obtained from the patient. Yes * Community resources currently utilized None * Additional services required to return to the preadmission environment? No * Can the patient safely return to the preadmission environment? Yes * Has this patient been hospitalized within the prior 30 days at any hospital? No Coverage Notice Reviewer: [id number] - Mariyamateo Linn Notice Issued Date-Time: 10/09/2019 13:46 Notice Type: Patient Choice Letter Notice Delivered To: Patient Relationship to Patient: Business Development Sales Executive Name: Delivery Method: HAND - Hand Delivered Clara Days: Prior Verbal Notification: Recipient Understood Notice: Yes Recipient Signature: Yes Med Rec Note Co-signed by Attending: Coverage Notice Comment: [facility]. Last DP export: 10/10/19 10:13 Patient Name: EMMANUEL LI Page [id number] at 1120 All edits/amendments must be made on the electronic document DICTATION DATE: 10/10/19 111 PRIMARY SCHOOL TEACHER: EVELIA 10/10/19 111 RPT#: [id number] DC DATE: STATUS: ADM IN [facility] [address] [place] [address] END OF REPORT
[2019-10-10 11:46] VITALS: BP 121/52
--- NOTE | 2019-10-10 12:06 | MORECARE ---
CASE MANAGEMENT DISCHARGE SUMMARY PATIENT: EMMANUEL LI EARLENE UNIT: [id number] ADM DATE: 10/08/19 AGE: 64 : 53 SEX: F ROOM/BED: D.2209 AUTHOR: RENALDO BARRAGAN PHYSICIAN: REFERRING PHYSICIAN: ANEUDY HAWTHORNE MD DATE OF SERVICE: 10/10/19 Discharge Plan Patient Name: EMMANUEL LI Facility: [facility]:[place] : 1955 Planned Disposition: Home Anticipated Discharge Date: 10/10/19 Discharge Date: Expected LOS: 2 Initial Reviewer: [email or web address] Initial Review Date: 10/08/2019 Generated: 10/10/19 1:05 pm Comments DCP- Discharge Planning Updated by [id number]: Rhea Haines on 10/10/19 11:[address] PATIENT OP PT APPT FOR Thu10/12/19 AT 10:45 AM DME DELIVERED TO THE ROOM DCP- Discharge Planning Updated by [id number]: Rhea Haines on 10/10/19 10:[address] Spoke with patient about OP PT she would like to use [facility] on [address]. I called [facility] and spoke with Lj, he was unsure if they took her insurance. I have sent a facesheet & they are going to run her insurance to see if they will take it. Lj to call me back. Zaheer at [facility] patient stated that they are on their way to deliver DME. Cm to follow and assist with DC planning. DCP- Discharge Planning Updated by [id number]: Rhea Haines on 10/10/19 7:[address] SPOKE WITH ZAHEER AT [facility] PATIENT, SHE DID NOT RECEIVE TH ORDER OR CLINICAL. REXED IT OVER TO HER. WILL AWAIT FOR CALL BACK DCP- Discharge Planning Updated by [id number]: Mariya Linn on 10/09/19 1:[address] Patient Name: EMMANUEL LI Admission Status: ER Accout number: [id number] Admission Date: 10-08-2019 : 1955 Admission Diagnosis: Attending: ANEUDY HAWTHORNE Current LOS: 1 Anticipated DC Date: 10-10-2019 Planned Disposition: Home Primary Insurance: [employer] Discharge Planning Comments: CM MET WITH PATIENT ABOUT DC PLANNING/NEEDS. STATES NEEDS A WALKER, BSC AND RAISED TOILET. I FAXED REFERRAL TO [facility] PATIENT AND LET THEM KNOW ANTICIPATE DC IN THE MORNING. PATIENT WANTS OUT PATIENT PT WITH THE PT ON [address]HE[facility] PAT[address], SHE WILL LET US KNOW SOON SHE FINDS OUT THE NAME. SHE IS TO DC WITH THE PROVENA WOUND VAC. ANTICIPATE DC IN THE MORNING. CM TO FOLLOW. DENIES HH OR REHAB. DR PRESCOTT STATES WILL REMOVE VAC IN ONE WEEK AT HER FOLLOW UP APPOINTMENT. Sales Training Coordinator: Mariya Linn DCP- Discharge Planning Updated by [id number]: Gayle Hanna on 10/08/19 10:[address] DC PLAN: Return home with if able post op. ANTICIPATED DC NEEDS: May need therapy at dc. CM met with patient to complete initial dc planning assessment. CM educated patient on the CM role and verbal consent given by patient to complete assessment. CM verified patient's address, phone number, and emergency contact phone numbers. Patient lives at home with her . She is independent in her care at home. She reports she was hold a gate to keep a cow in a contained area when the cow ran through the gate and she fell on her right hip. At discharge patient plans to return home with her and feels this is a safe discharge. CM discussed availability of home health, rehab services, and medical equipment. Patient denied known discharge needs at this time. She is hopeful to not need therapy at time of discharge but is aware she may need OP or HH if she does not do well post op. Transportation provider at discharge will be her . CM will continue to follow and will assist as needed with dc plans/needs. Gayle Hanna RN, [facility] DCPIA - Discharge Planning Initial Assessment Updated by [id number]: Gayle Hanna on 10/08/19 11:20 am * Is the patient Alert and Oriented? Yes * How many steps to enter\exit or inside your home? One * PCP Dr. Hamilton * [facility]acy [facility] * Preadmission Environment Home with Family * ADLs Independent * Equipment CPAP * List name and contact numbers for known caregivers / representatives who currently or will assist patient after discharge: Alexander Li - spouse - [phone] * Verbal permission to speak to the caregivers and representatives has been obtained from the patient. Yes * Community resources currently utilized None * Additional services required to return to the preadmission environment? No * Can the patient safely return to the preadmission environment? Yes * Has this patient been hospitalized within the prior 30 days at any hospital? No Coverage Notice Reviewer: [email or web address] Jaimie Linn Notice Issued Date-Time: 10/09/2019 13:46 Notice Type: Patient Choice Letter Notice Delivered To: Patient Relationship to Patient: Parachute/Combatant Diver Officer Name: Delivery Method: HAND - Hand Delivered Clara Days: Prior Verbal Notification: Recipient Understood Notice: Yes Recipient Signature: Yes Med Rec Note Co-signed by Attending: Coverage Notice Comment: [facility]. Last DP export: 10/10/19 10:20 Patient Name: EMMANUEL LI Page 12134 at 1206 All edits/amendments must be made on the electronic document DICTATION DATE: 10/10/191204 UNIVERSITY ARCHIVIST: EVELIA 10/10/19 1205 RPT#: [id number] DC DATE: STATUS: ADM IN [facility] [address] [place] [address] END OF REPORT
--- NOTE | 2019-10-10 12:08 | NUR ---
DISCHARGE EDUCATION PROVIDED BOTH WRITTEN AND VERBAL. VERBALIZED UNDERSTANDING. DENIES FURTHER QUESTIONS. IV REMOVED FROM LEFT AC WITH TIP INTACT. WOUND VAC CHANGED TO HOME WOUND VAC AND EDUCATION PROVIDED. VERBALIZED UNDERSTANDING. HOSPITAL WOUND VAC PLACED IN SOILED UTLITY. WC CALLED FOR PATIENT.
--- NOTE | 2019-10-10 12:13 | NUR ---
PATIENT DISCHARGED HOME WITH WITH ALL BELONGINGS.
--- NOTE | 2019-10-15 15:43 | MORECARE ---
CASE MANAGEMENT DISCHARGE SUMMARY PATIENT: EMMANUEL LI EARLENE UNIT: [id number] ADM DATE: 10/08/19 AGE: 64 : 51 SEX: F ROOM/BED: D.7955 AUTHOR: RENALDO BARRAGAN PHYSICIAN: REFERRING PHYSICIAN: ANEUDY HAWTHORNE MD DATE OF SERVICE: 10/15/19 Discharge Plan Patient Name: EMMANUEL LI Facility: [facility]:[place] : 1955 Planned Disposition: Home Anticipated Discharge Date: 10/10/19 Discharge Date: 10/10/2019 Expected LOS: 2 Initial Reviewer: [id number] Initial Review Date: 10/08/2019 Generated: 10/15/19 4:42 pm DCP- Discharge Planning Updated by [id number]: Rhea Haines on 10/10/19 11:[address] PATIENT OP PT APPT FOR Thu10/12/19 AT 10:45 AM DME DELIVERED TO THE ROOM DCP- Discharge Planning Updated by [id number]: Rhea Haines on 10/10/19 10:[address] Spoke with patient about OP PT she would like to use [facility] on [address]. I called [facility] and spoke with Lj, he was unsure if they took her insurance. I have sent a facesheet & they are going to run her insurance to see if they will take it. Lj to call me back. Zaheer at [facility] patient stated that they are on their way to deliver DME. Cm to follow and assist with DC planning. DCP- Discharge Planning Updated by [id number]: Rhea Haines on 10/10/19 7:[address] SPOKE WITH ZAHEER AT [facility] PATIENT, SHE DID NOT RECEIVE TH ORDER OR CLINICAL. REXED IT OVER TO HER. WILL AWAIT FOR CALL BACK DCP- Discharge Planning Updated by [email or web address]: Mariya Linn on 10/09/19 1:[address] Patient Name: EMMANUEL LI Admission Status: ER Accout number: [id number] Admission Date: 10-08-2019 : 1955 Admission Diagnosis: Attending: ANEUDY HAWTHORNE Current LOS: 1 Anticipated DC Date: 10-10-2019 Planned Disposition: Home Primary Insurance: [employer] Discharge Planning Comments: CM MET WITH PATIENT ABOUT DC PLANNING/NEEDS. STATES NEEDS A WALKER, BSC AND RAISED TOILET. I FAXED REFERRAL TO [facility] PATIENT AND LET THEM KNOW ANTICIPATE DC IN THE MORNING. PATIENT WANTS OUT PATIENT PT WITH THE PT ON RACHEAL PATEL, SHE WILL LET US KNOW SOON SHE FINDS OUT THE NAME. SHE IS TO DC WITH THE PROVENA WOUND VAC. ANTICIPATE DC IN THE MORNING. CM TO FOLLOW. DENIES HH OR REHAB. DR PRESCOTT STATES WILL REMOVE VAC IN ONE WEEK AT HER FOLLOW UP APPOINTMENT. Manager Study: Mariya Linn DCP- Discharge Planning Updated by [email or web address]: Gayle Hanna on 10/08/19 10:[address] DC PLAN: Return home with if able post op. ANTICIPATED DC NEEDS: May need therapy at dc. CM met with patient to complete initial dc planning assessment. CM educated patient on the CM role and verbal consent given by patient to complete assessment. CM verified patient's address, phone number, and emergency contact phone numbers. Patient lives at home with her . She is independent in her care at home. She reports she was hold a gate to keep a cow in a contained area when the cow ran through the gate and she fell on her right hip. At discharge patient plans to return home with her and feels this is a safe discharge. CM discussed availability of home health, rehab services, and medical equipment. Patient denied known discharge needs at this time. She is hopeful to not need therapy at time of discharge but is aware she may need OP or HH if she does not do well post op. Transportation provider at discharge will be her . CM will continue to follow and will assist as needed with dc plans/needs. Gayle Hanna RN, [facility] DCPIA - Discharge Planning Initial Assessment Updated by [email or web address]: Gayle Hanna on 10/08/19 11:20 am * Is the patient Alert and Oriented? Yes * How many steps to enter\exit or inside your home? One * PCP Dr. Hamilton * [facility]acy [facility] * Preadmission Environment Home with Family * ADLs Independent * Equipment CPAP * List name and contact numbers for known caregivers / representatives who currently or will assist patient after discharge: Alexander Li - spouse - [phone] * Verbal permission to speak to the caregivers and representatives has been obtained from the patient. Yes * Community resources currently utilized None * Additional services required to return to the preadmission environment? No * Can the patient safely return to the preadmission environment? Yes * Has this patient been hospitalized within the prior 30 days at any hospital? No Coverage Notice Reviewer: [id number] Jaimie Mariya Temitope Notice Issued Date-Time: 10/09/2019 13:46 Notice Type: Patient Choice Letter Notice Delivered To: Patient Relationship to Patient: Animation Artist Name: Delivery Method: HAND - Hand Delivered Clara Days: Prior Verbal Notification: Recipient Understood Notice: Yes Recipient Signature: Yes Med Rec Note Co-signed by Attending: Coverage Notice Comment: [facility]. Last DP export: 10/10/19 11:06 Patient Name: EMMANUEL LI Page [id number] at 1543 All edits/amendments must be made on the electronic document DICTATION DATE: 10/15/191541 SMALL PRODUCTS II ASSEMBLER: EVELIA 10/15/19 154 RPT#: [id number] DC DATE:10/10/19 STATUS: DIS IN [facility] [address] [place] [address] END OF REPORT
== END 2019-10-10 12:10 | disposition home or self-care (01) | DRG 470 ==
LOC: D.ER 09:42 → D.MS 10:38
PROVIDERS: Emergency Medicine; Internal Medicine Nephrology; Orthopaedic Surgery; ADMIT Family Medicine; ATTEND Family Medicine
PROC: 0SR90J9 Replacement of Right Hip Joint with Synthetic Substitute, Cemented, Open Approach (ICD-10-PCS; principal; 2019-10-08 16:00)
DX: S72.011A Unspecified intracapsular fracture of right femur, initial encounter for closed fracture (principal); D62 Acute posthemorrhagic anemia; W55.22XA Struck by cow, initial encounter; I10 Essential (primary) hypertension; Z85.3 Personal history of malignant neoplasm of breast; Z95.2 Presence of prosthetic heart valve; E66.9 Obesity, unspecified; Z68.36 Body mass index [BMI] 36.0-36.9, adult

== ENCOUNTER → 2020-01-24 09:20 | Outpatient (CLI) | payer OTHER ==
[2019-10-08 12:28] VITALS: BMI 36.1
== END | disposition home or self-care (01) ==
LOC: D.CT 09:20
PROVIDERS: ATTEND Internal Medicine Pulmonary Disease
DX: R91.1 Solitary pulmonary nodule (principal)

== ENCOUNTER → 2020-02-27 08:56 | Outpatient (CLI) | payer OTHER ==
[2019-10-08 12:28] VITALS: BMI 36.1
== END | disposition home or self-care (01) ==
LOC: D.US 08:56
PROVIDERS: ATTEND Thoracic Surgery (Cardiothoracic Vascular Surgery)
DX: I65.23 Occlusion and stenosis of bilateral carotid arteries (principal); I71.4 Abdominal aortic aneurysm, without rupture

== ENCOUNTER → 2020-03-06 21:06 | Outpatient (CLI) | payer OTHER ==
[2019-10-08 12:28] VITALS: BMI 36.1
== END | disposition home or self-care (01) ==
LOC: D.MAMMO 02-08 10:30
PROVIDERS: ATTEND Emergency Medicine
DX: Z85.3 Personal history of malignant neoplasm of breast (principal)

== ENCOUNTER → 2020-07-27 12:49 | Outpatient (CLI) | payer OTHER ==
[2019-10-08 12:28] VITALS: BMI 36.1
== END | disposition home or self-care (01) ==
LOC: D.HCCECHO 12:49
PROVIDERS: ATTEND Internal Medicine Cardiovascular Disease
DX: I34.0 Nonrheumatic mitral (valve) insufficiency (principal)

== ENCOUNTER → 2020-07-30 11:14 | Outpatient (CLI) | payer OTHER ==
[2019-10-08 12:28] VITALS: BMI 36.1
== END | disposition home or self-care (01) ==
LOC: D.CT 11:14
PROVIDERS: ATTEND Internal Medicine Pulmonary Disease
DX: R91.1 Solitary pulmonary nodule (principal); J44.9 Chronic obstructive pulmonary disease, unspecified

== ENCOUNTER 2021-03-29 10:00 | Outpatient (CLI) | payer OTHER ==
[2019-10-08 12:28] VITALS: BMI 36.1
== END 2021-03-29 23:59 | disposition home or self-care (01) ==
LOC: D.MAMMO 10:00
PROVIDERS: ATTEND Emergency Medicine
DX: Z85.3 Personal history of malignant neoplasm of breast (principal)